=== PATIENT | male | born 1965 | race Caucasian/White ===

== ENCOUNTER → 2016-07-04 | Outpatient (CLI) | payer OTHER ==
--- NOTE | 2016-07-04 12:07 | DIAGNOSTIC IMAGING REPORT ---
CERVICAL SPINE 3 VIEWS HISTORY: Pain. RADICULOPATHY CERVICAL COMPARISON: None. FINDINGS: The cervical spine is visualized from C1 through the superior endplate of T1. There is no fracture. Mild cervical scoliosis. Disc spaces are preserved. Prevertebral soft tissues and the atlantodens interval are intact. IMPRESSION: Mild cervical scoliosis versus mild torticollis. No acute bony abnormality. Electronically signed by: Cesar Gardner M.D. 07/04/2016 12:06 PM Dictated Date/Time: 07/04/2016 12:05 PM
== END | disposition home or self-care (01) ==
LOC: C.RADBC 11:36
PROVIDERS: ATTEND Family Medicine
DX: M54.12 Radiculopathy, cervical region (principal)